=== PATIENT | male | born 1970 | race Caucasian/White ===

== ENCOUNTER 2016-12-05 00:09 | Emergency (ER) | payer OTHER ==
[2016-12-05] MEDS ORDERED: AMOXICILLIN 250 MG CAP PO ONE (00:20)
[2016-12-05] MEDS ORDERED: KETOROLAC TROMETHAMINE 30 MG/ML SOL IM ONE (00:20)
[2016-12-05] MEDS ORDERED: APAP/HYDROCODONE 325/7.5 TAB PO ONE (00:21)
[2016-12-05] MEDS ORDERED: LIDOCAINE HCL 2% (VISCOUS) 20 ML SOL MT ONE (00:22)
[2016-12-05 00:23] VITALS: BP 160/101; PULSE 80; RESP 18; TEMP 99.1; O2SAT 97
[2016-12-05] MEDS ORDERED: LIDOCAINE HCL 2% (VISCOUS) 20 ML SOL ONE (00:28)
[2016-12-05] MEDS ORDERED: KETOROLAC TROMETHAMINE 30 MG/ML SOL ONE (00:28)
[2016-12-05] MEDS ORDERED: APAP/HYDROCODONE 325/5 TAB PO ONE (00:29)
[2016-12-05] MEDS ORDERED: AMOXICILLIN(FRIDGE) 125/5 ML BOTTLE PO ONE (00:29)
[2016-12-05] MEDS ORDERED: AMOXICILLIN(FRIDGE) 125/5 ML BOTTLE ONE (00:30)
[2016-12-05] MEDS ORDERED: APAP/HYDROCODONE 325/5 TAB ONE (00:30)
== END 2016-12-05 00:53 | disposition home or self-care (01) | DRG 159 ==
LOC: ED 00:09
DX: K08.89 Other specified disorders of teeth and supporting structures (principal)
CPT/HCPCS: 99282; J1885

== ENCOUNTER 2016-12-29 15:01 | Emergency (ER) | payer OTHER ==
[2016-12-29 15:13] VITALS: TEMP 98.4
[2016-12-29 15:19] LABS: BASOPHILS % (AUTO) 1 % (0-3); EOSINOPHILS % (AUTO) 4 % (0-9); HEMATOCRIT 47 % (39-53); MEAN CORPUSCULAR HGB CONC 34.2 gm/dl (32.0-36.0); MEAN CORPUSCULAR VOLUME 93 fL (80-100); MONOCYTES % (AUTO) 9.8 % (0-12); NEUTROPHILS % (AUTO) 51.1 % (37-80)
[2016-12-29] MEDS ORDERED: KETOROLAC TROMETHAMINE 30 MG/ML SOL IM ONE (15:37)
[2016-12-29] MEDS ORDERED: CYCLOBENZAPRINE 10 MG TAB PO ONE (15:38)
[2016-12-29] MEDS ORDERED: CYCLOBENZAPRINE 10 MG TAB ONE (15:39)
[2016-12-29] MEDS ORDERED: KETOROLAC TROMETHAMINE 30 MG/ML SOL ONE (15:39)
[2016-12-29 15:40] LABS: CALCIUM 8.7 mg/dl (8.5-10.1); GLOM FILT RATE 96 mL/min (>60); POTASSIUM 3.7 mMol/L (3.5-5.1); SODIUM 139 mMol/L (136-145)
[2016-12-29 16:11] VITALS: RESP 20
[2016-12-29 16:12] VITALS: BP 158/99; PULSE 62; O2SAT 98
== END 2016-12-29 16:15 | disposition home or self-care (01) | DRG 313 ==
LOC: ED 15:01
DX: R07.89 Other chest pain (principal)
CPT/HCPCS: 36415; 71010; 80048; 83880; 84484; 85025; 93005; 96372; 99284; J1885